=== PATIENT | male | born 1970 | race Caucasian/White ===

== ENCOUNTER 2017-08-27 18:08 | Inpatient (IN) ==
[2017-08-27] MEDS ORDERED: ASPIRIN 325 MG TABLET PO STA (19:23)
[2017-08-27] MEDS ORDERED: ONDANSETRON 4 MG/2 ML VIAL IV STA (19:23)
[2017-08-27] MEDS ORDERED: NITROGLYCERIN 2% OINT 1 INCH/GM PACK TOP STA (19:23)
[2017-08-27] MEDS ORDERED: MORPHINE 2 MG/1 ML SYRINGE IV STA (19:23)
[2017-08-27 19:29] LABS: Basophils # 0.1 10*3/uL (0.0-0.2); Basophils % 0.7 % (0.0-0.8); Eosinophils # 0.1 10*3/uL (0.0-0.87); Hematocrit 45.6 VOL% (42.0-52.0); Hemoglobin 14.9 GM/DL (14.0-18.0); Immature Granulocytes % 0.5 %; Immature Granulocytes Absolute 0.04 #; Lymphocytes # 1.6 10*3/uL (1.4-4.0); Lymphocytes % 19.8 % (21.2-54.2); Mean Corpuscular HGB Conc 32.7 GM/DL (32-36); Mean Corpuscular Hemoglobin 28 PG (27-34); Mean Corpuscular Volume 84.4 FL (87-102); Mean Platelet Volume 13.5 FL (9.6-12.0); Monocytes # 0.6 10*3/uL (0.11-0.8); Monocytes % 7.6 % (1.7-12.7); Neutrophils # 5.8 10*3/uL (1.4-7.4); Neutrophils % 70.4 % (38.7-73.9); Platelet Count 201 T/CUMM (130-400); Red Cell Distribution Width 13.9 % (9.3-17.3); White Blood Count 8.2 T/CUMM (4-12)
[2017-08-27 19:38] LABS: PT Patient Result 10.3 SECS
[2017-08-27 19:42] LABS: Albumin 3.8 G/DL (3.4-5.0); Bilirubin,Total 0.6 MG/DL (0.2-1.0); Calcium 8.5 MG/DL (8.5-10.1); Osmolality,Calculated 262.5 MOS/KG (273-304); Potassium 3.8 MMOL/L (3.5-5.1); Total Protein 7.4 G/DL (6.4-8.3)
[2017-08-27] MEDS ORDERED: NITROGLYCERIN 2% OINT 1 INCH/GM PACK TOP ONE (19:52)
[2017-08-27] MEDS ORDERED: ONDANSETRON 4 MG/2 ML VIAL ONE (19:52)
[2017-08-27] MEDS ORDERED: MORPHINE 10 MG/1 ML VIAL ONE (19:52)
[2017-08-27] MEDS ORDERED: ASPIRIN 325 MG TABLET ONE (19:53)
[2017-08-27] MEDS ORDERED: METOPROLOL TARTRATE 5 MG/5 ML VIAL IV ONE ×2 (20:52)
[2017-08-27] MEDS ORDERED: ACETAMINOPHEN 325 MG TABLET PO PRN (21:46)
[2017-08-27] MEDS ORDERED: MORPHINE 10 MG/1 ML VIAL IV PRN (21:46)
[2017-08-27] MEDS ORDERED: ONDANSETRON 4 MG/2 ML VIAL IV PRN (21:46)
[2017-08-27] MEDS: ENOXAPARIN 150 MG/ML SYRINGE SUBCUT SCH (22:37)
[2017-08-27] MEDS: SODIUM CHLORIDE 0.9% 1,000 ML IV SCH (22:40)
[2017-08-27] MEDS: DOCUSATE SODIUM 100 MG CAPSULE PO SCH (22:40)
[2017-08-27] MEDS: NITROGLYCERIN 2% OINT 1 INCH/GM PACK TOP SCH (23:44)
[2017-08-28 03:09] LABS: Basophils # 0.1 10*3/uL (0.0-0.2); Basophils % 0.6 % (0.0-0.8); Eosinophils # 0.1 10*3/uL (0.0-0.87); Eosinophils % 1.6 % (0.00-10.9); Hematocrit 42.8 VOL% (42.0-52.0); Immature Granulocytes % 0.4 %; Immature Granulocytes Absolute 0.03 #; Lymphocytes # 2.8 10*3/uL (1.4-4.0); Lymphocytes % 34.5 % (21.2-54.2); Mean Corpuscular HGB Conc 32.7 GM/DL (32-36); Mean Corpuscular Hemoglobin 28 PG (27-34); Mean Corpuscular Volume 85.1 FL (87-102); Mean Platelet Volume 12.4 FL (9.6-12.0); Monocytes # 0.6 10*3/uL (0.11-0.8); Monocytes % 7.7 % (1.7-12.7); Neutrophils # 4.5 10*3/uL (1.4-7.4); Neutrophils % 55.2 % (38.7-73.9); Platelet Count 191 T/CUMM (130-400); Red Blood Count 5.03 MC/CUMM (3.8-5.5); Red Cell Distribution Width 13.9 % (9.3-17.3); White Blood Count 8.2 T/CUMM (4-12)
[2017-08-28 03:35] LABS: Albumin 3.3 G/DL (3.4-5.0); Bilirubin,Total 0.4 MG/DL (0.2-1.0); Calcium 8.1 MG/DL (8.5-10.1); Osmolality,Calculated 279.4 MOS/KG (273-304); Potassium 3.4 MMOL/L (3.5-5.1); Risk Ratio 7.03; Total Protein 6.4 G/DL (6.4-8.3); VLDL CHOLESTEROL 52.6 MG/DL
[2017-08-28] MEDS: NITROGLYCERIN 2% OINT 1 INCH/GM PACK TOP SCH ×3 (06:38→17:31)
[2017-08-28] MEDS ORDERED: IRBESARTAN 150 MG TABLET PO SCH (09:00)
[2017-08-28] MEDS ORDERED: ASPIRIN EC 81 MG TABLET PO SCH (09:00)
[2017-08-28] MEDS ORDERED: PANTOPRAZOLE 40 MG TABLET PO SCH (09:00)
[2017-08-28] MEDS: DOCUSATE SODIUM 100 MG CAPSULE PO SCH (09:21)
[2017-08-28] MEDS ORDERED: POTASSIUM CHLORIDE RIDER 10 MEQ in PREMIX 1 EACH IV PRN (10:18)
[2017-08-28] MEDS ORDERED: MAGNESIUM SULF RIDER 2 GM in PREMIX 1 EACH IV PRN (10:18)
[2017-08-28] MEDS ORDERED: diphenhydrAMINE CAP 25 MG CAPSULE PO ONE (10:30)
[2017-08-28] MEDS ORDERED: DIAZEPAM 5 MG TABLET PO ONE (10:30)
[2017-08-28 10:54] LABS: Apearance,Urine CLOUDY (Clear); Bacteria,Urine Many /HPF (Few); Bilirubin,Urine Negative (Negative); Blood, Urine Small mg/dL (Negative); Glucose,Urine (UA) Negative (Negative); Ketones,Urine Negative (Negative); Mucus,Urine Occasional /LPF (Occasional); Nitrite,Urine Negative (Negative); Protein,Urine 30 MG/DL; RBC,Urine 19 /HPF (0-4); Urine Color Yellow (Yellow); Urine Specific Gravity 1.013 (1.001-1.035); Urine Urobilinogen < 2.0 EU/DL (0.2-1.0); WBC,Urine 123 /HPF (0-6)
[2017-08-28 10:56] LABS: Barbiturates Screen,Urine Negative (Negative); Benzodiazepines Screen,Urine Negative (Negative); Cannabinoid Screen,Urine Negative (Negative); Opiate Screen,Urine Positive (Negative); Phencyclidine Screen,Urine Negative (Negative)
[2017-08-28] MEDS: ENOXAPARIN 150 MG/ML SYRINGE SUBCUT SCH (11:19)
[2017-08-28] MEDS: SODIUM CHLORIDE 0.9% 1,000 ML IV SCH (11:20)
[2017-08-28] MEDS ORDERED: LIDOCAINE 1% 20 ML VIAL ONE (12:16)
[2017-08-28] MEDS ORDERED: MIDAZOLAM 2 MG/2 ML VIAL ONE (12:16)
[2017-08-28] MEDS ORDERED: HYDROmorphone 2 MG/1 ML VIAL ONE (12:16)
[2017-08-28] MEDS ORDERED: NITROGLYCERIN DRIP 50 MG/250 ML BOTTLE IV ONE (12:26)
[2017-08-28] MEDS ORDERED: VERAPAMIL 5 MG/2 ML VIAL ONE (12:26)
[2017-08-28 18:36] VITALS: BP 146/90
[2017-08-28] MEDS ORDERED: ROSUVASTATIN 20 MG TABLET PO SCH (21:00)
== END 2017-08-28 19:25 | disposition home or self-care (01) | DRG 287 ==
LOC: N.ED 18:08 → N.EDINP 20:14 → N.TELES 20:47
PROVIDERS: ADMIT Family Medicine; ATTEND Family Medicine
PROC: CLCCHCL (ICD-10-PCS; 2017-08-28 11:45)

== ENCOUNTER 2022-01-15 07:08 | Inpatient (IN) ==
[2022-01-15] MEDS ORDERED: ASPIRIN 325 MG TABLET PO STA (07:26)
[2022-01-15] MEDS ORDERED: ONDANSETRON 4 MG/2 ML VIAL IV STA (07:51)
[2022-01-15] MEDS ORDERED: MORPHINE 2 MG/1 ML SYRINGE IV STA ×3 (07:51→09:28)
[2022-01-15] MEDS ORDERED: METOPROLOL TARTRATE 5 MG/5 ML VIAL IV STA ×3 (07:51→09:28)
[2022-01-15 07:52] LABS: Basophils # 0.1 10*3/uL (0.0-0.2); Basophils % 0.9 % (0.0-0.8); Eosinophils # 0.2 10*3/uL (0.0-0.87); Eosinophils % 1.9 % (0.00-10.9); Hematocrit 46.5 VOL% (42.0-52.0); Hemoglobin 15.5 GM/DL (14.0-18.0); Immature Granulocytes % 0.6 %; Immature Granulocytes Absolute 0.05 #; Lymphocytes # 1.7 10*3/uL (1.4-4.0); Lymphocytes % 21.1 % (21.2-54.2); Mean Corpuscular HGB Conc 33.3 GM/DL (32-36); Mean Corpuscular Volume 94.5 FL (87-102); Mean Platelet Volume 11.7 FL (9.6-12.0); Monocytes # 0.7 10*3/uL (0.11-0.8); Monocytes % 8.9 % (1.7-12.7); Neutrophils % 66.6 % (38.7-73.9); Platelet Count 164 T/CUMM (130-400); Red Blood Count 4.92 MC/CUMM (3.8-5.5); Red Cell Distribution Width 13.4 % (9.3-17.3)
[2022-01-15] MEDS ORDERED: NITROGLYCERIN 2% OINT 1 INCH/GM PACK TOP STA (08:09)
[2022-01-15 08:13] LABS: Albumin 3.1 G/DL (3.4-5.0); Bilirubin,Total 0.4 MG/DL (0.20-1.00); Calcium 8.5 MG/DL (8.5-10.1); INR 0.9; Osmolality,Calculated 276.8 MOS/KG (273-304); PT Patient Result 9.8 SECS (10.5-12.0); Partial Thromboplastin Time 26.2 SECS (23.8-32.1); Potassium 4.3 MMOL/L (3.5-5.1); Total Protein 6.7 G/DL (6.4-8.2)
[2022-01-15] MEDS ORDERED: ALUM/MAG/SIMETH/LIDO VISC 1:1 30 ML BOTTLE PO STA (08:19)
[2022-01-15] MEDS ORDERED: LORazepam 2 MG/1 ML VIAL IV STA (08:19)
[2022-01-15] MEDS ORDERED: niCARdipine 25 MG/10 ML VIAL IV ONE ×3 (08:34→14:40)
[2022-01-15] MEDS: niCARdipine INJ 25 MG in SODIUM CHLORIDE 0.9% 240 ML IV PRN ×5 (08:40→20:55)
[2022-01-15 08:41] LABS: Bacteria,Urine Moderate /HPF (Few); Bilirubin,Urine Negative (Negative); Blood, Urine Negative (Negative); Glucose,Urine (UA) 100 mg/dL (Negative); Ketones,Urine Negative (Negative); Mucus,Urine Occasional /LPF (Occasional); Nitrite,Urine Positive (Negative); Protein,Urine Trace mg/dL (Negative); RBC,Urine 1 /HPF (0-4); Squamous Epithelial Cell,Urine Occasional /HPF (0-10); Urine Appearance Clear (Clear); Urine Color Yellow (Yellow); Urine Urobilinogen 0.2 eU/dL (<2.0); Urine pH 5.5 (4.5-8.0)
[2022-01-15] MEDS ORDERED: LEVOFLOXACIN INJ 500 MG/100 ML PREMIX IV STA (08:48)
[2022-01-15 08:49] LABS: Barbiturates Screen,Urine Negative (Negative); Benzodiazepines Screen,Urine Negative (Negative); Cannabinoid Screen,Urine Negative (Negative); Opiate Screen,Urine Negative (Negative); Phencyclidine Screen,Urine Negative (Negative)
[2022-01-15] MEDS ORDERED: ESMOLOL 2,500 MG/250 ML PREMIX IV SCH (09:30)
[2022-01-15] MEDS ORDERED: MORPHINE 10 MG/1 ML VIAL ONE (09:38)
[2022-01-15] MEDS ORDERED: ESMOLOL IV ONE ×2 (10:00)
[2022-01-15] MEDS ORDERED: SODIUM CHLORIDE 0.9% IV ONE (10:00)
[2022-01-15] MEDS ORDERED: LABETALOL INJ 200 MG in SODIUM CHLORIDE 0.9% 160 ML IV SCH (13:00)
[2022-01-15] MEDS ORDERED: ALBUTEROL 2.5 MG/3 ML NEB RESP TX PRN (14:18)
[2022-01-15] MEDS ORDERED: ALUMINUM/MAGNES/SIMETH MAX STR 30 ML UDCUP PO PRN (14:18)
[2022-01-15] MEDS: LACTATED RINGERS 1,000 ML IV SCH (15:00)
[2022-01-15] MEDS ORDERED: amLODIPine 5 MG TABLET PO SCH (15:00)
[2022-01-15] MEDS: METOPROLOL SUCCINATE XL 100 MG TABLET PO SCH (15:15)
[2022-01-15] MEDS: PANTOPRAZOLE 40 MG TABLET PO SCH (15:15)
[2022-01-15] MEDS: MORPHINE 2 MG/1 ML SYRINGE IV PRN ×2 (15:15→22:11)
[2022-01-15] MEDS: oxyCODONE/ACETAMINOPHEN 5-325 MG TABLET PO PRN (15:15)
[2022-01-15] MEDS: ISOSORBIDE DINITRATE 20 MG TABLET PO SCH ×2 (15:15→20:23)
[2022-01-15] MEDS: ENOXAPARIN 40 MG/0.4 ML SYRINGE SUBCUT SCH (15:15)
[2022-01-15] MEDS ORDERED: ONDANSETRON 4 MG/2 ML VIAL ONE (17:38)
[2022-01-15] MEDS: ONDANSETRON 4 MG/2 ML VIAL IV PRN ×2 (17:40→22:23)
[2022-01-15] MEDS: ALPRAZolam 0.5 MG TABLET PO SCH ×2 (17:49→23:00)
[2022-01-15] MEDS: niCARdipine INJ 50 MG in SODIUM CHLORIDE 0.9% 480 ML IV PRN (23:43)
[2022-01-16] MEDS ORDERED: LACTULOSE 20 GM/30 ML UDCUP PO ONE (04:05)
[2022-01-16] MEDS: niCARdipine INJ 50 MG in SODIUM CHLORIDE 0.9% 480 ML IV PRN ×4 (04:33→20:15)
[2022-01-16 06:04] LABS: Basophils % 0.2 % (0.0-0.8); Eosinophils # 0.1 10*3/uL (0.0-0.87); Eosinophils % 0.7 % (0.00-10.9); Hematocrit 45.7 VOL% (42.0-52.0); Hemoglobin 14.9 GM/DL (14.0-18.0); Immature Granulocytes % 0.4 %; Immature Granulocytes Absolute 0.05 #; Lymphocytes % 8.1 % (21.2-54.2); Mean Corpuscular HGB Conc 32.6 GM/DL (32-36); Mean Corpuscular Volume 96.6 FL (87-102); Mean Platelet Volume 11.9 FL (9.6-12.0); Monocytes # 0.8 10*3/uL (0.11-0.8); Monocytes % 6.3 % (1.7-12.7); Neutrophils % 84.3 % (38.7-73.9); Platelet Count 150 T/CUMM (130-400); Red Blood Count 4.73 MC/CUMM (3.8-5.5); Red Cell Distribution Width 13.4 % (9.3-17.3); White Blood Count 12.7 T/CUMM (4-12)
[2022-01-16 06:17] LABS: Calcium 8.3 MG/DL (8.5-10.1); Osmolality,Calculated 269.2 MOS/KG (273-304); Potassium 3.6 MMOL/L (3.5-5.1)
[2022-01-16 06:19] LABS: High Sensitive Troponin I* 16138.4 ng/L (0-78)
[2022-01-16] MEDS: ALPRAZolam 0.5 MG TABLET PO SCH ×3 (06:44→17:30)
[2022-01-16] MEDS ORDERED: DIAZEPAM 5 MG TABLET PO ONE (07:48)
[2022-01-16] MEDS ORDERED: diphenhydrAMINE CAP 50 MG CAPSULE PO ONE (07:48)
[2022-01-16] MEDS ORDERED: MAGNESIUM CITRATE 300 ML BOTTLE PO ONE (08:21)
[2022-01-16] MEDS ORDERED: METOPROLOL SUCCINATE XL 100 MG TABLET PO SCH (09:00)
[2022-01-16] MEDS ORDERED: SODIUM CHLORIDE 0.9% 1,000 ML IV SCH (09:00)
[2022-01-16 09:12] LABS: Risk Ratio 5.9; VLDL Cholesterol 72.6 MG/DL
[2022-01-16] MEDS: LOSARTAN 25 MG TABLET PO SCH ×2 (09:30→20:49)
[2022-01-16] MEDS: oxyCODONE/ACETAMINOPHEN 5-325 MG TABLET PO PRN (09:30)
[2022-01-16] MEDS: ASPIRIN EC 81 MG TABLET PO SCH (09:30)
[2022-01-16] MEDS: MORPHINE 2 MG/1 ML SYRINGE IV PRN (09:30)
[2022-01-16] MEDS: METOPROLOL SUCCINATE XL 100 MG TABLET PO SCH (09:30)
[2022-01-16] MEDS: PANTOPRAZOLE 40 MG TABLET PO SCH (09:30)
[2022-01-16] MEDS: ISOSORBIDE DINITRATE 20 MG TABLET PO SCH ×3 (09:30→20:15)
[2022-01-16] MEDS: LACTATED RINGERS 1,000 ML IV SCH (10:48)
[2022-01-16] MEDS ORDERED: HYDROmorphone 1 MG/1 ML SYRINGE ONE (13:17)
[2022-01-16] MEDS ORDERED: MIDAZOLAM 2 MG/2 ML VIAL ONE (13:18)
[2022-01-16] MEDS ORDERED: HEPARIN/NACL 0.9% 2 UNITS/ML 1,000 UNIT/500 ML BAG IV ONE (13:21)
[2022-01-16] MEDS ORDERED: NITROGLYCERIN DRIP 50 MG/250 ML BOTTLE IV ONE ×2 (13:22→13:23)
[2022-01-16] MEDS ORDERED: VERAPAMIL 5 MG/2 ML VIAL ONE (13:23)
[2022-01-16] MEDS ORDERED: ENOXAPARIN 30 MG/0.3 ML SYRINGE ONE (13:36)
[2022-01-16] MEDS ORDERED: TICAGRELOR 90 MG TABLET ONE (14:22)
[2022-01-16] MEDS: ENOXAPARIN 40 MG/0.4 ML SYRINGE SUBCUT SCH (15:53)
[2022-01-16] MEDS: TICAGRELOR 90 MG TABLET PO SCH (20:15)
[2022-01-16] MEDS ORDERED: MORPHINE 2 MG/1 ML SYRINGE IV PRN (21:16)
[2022-01-16] MEDS: ALPRAZolam 0.5 MG TABLET PO PRN (23:17)
[2022-01-17] MEDS: niCARdipine INJ 50 MG in SODIUM CHLORIDE 0.9% 480 ML IV PRN ×2 (01:13→04:27)
[2022-01-17 05:31] LABS: Basophils % 0.4 % (0.0-0.8); Eosinophils # 0.1 10*3/uL (0.0-0.87); Eosinophils % 0.9 % (0.00-10.9); Hematocrit 43.9 VOL% (42.0-52.0); Hemoglobin 14.1 GM/DL (14.0-18.0); Immature Granulocytes % 0.5 %; Immature Granulocytes Absolute 0.06 #; Lymphocytes # 1.2 10*3/uL (1.4-4.0); Lymphocytes % 10.5 % (21.2-54.2); Mean Corpuscular HGB Conc 32.1 GM/DL (32-36); Mean Corpuscular Volume 96.9 FL (87-102); Mean Platelet Volume 11.5 FL (9.6-12.0); Monocytes # 0.8 10*3/uL (0.11-0.8); Monocytes % 6.9 % (1.7-12.7); Neutrophils % 80.8 % (38.7-73.9); Platelet Count 140 T/CUMM (130-400); Red Blood Count 4.53 MC/CUMM (3.8-5.5); Red Cell Distribution Width 13.4 % (9.3-17.3); White Blood Count 11.2 T/CUMM (4-12)
[2022-01-17 05:58] LABS: High Sensitive Troponin I* 7582.4 ng/L (0-78); Osmolality,Calculated 272.8 MOS/KG (273-304)
[2022-01-17 05:59] LABS: Calcium 8.1 MG/DL (8.5-10.1)
[2022-01-17] MEDS ORDERED: hydrALAZINE 20 MG/1 ML VIAL IV PRN (07:43)
[2022-01-17] MEDS: PANTOPRAZOLE 40 MG TABLET PO SCH (08:10)
[2022-01-17] MEDS: ISOSORBIDE DINITRATE 20 MG TABLET PO SCH ×3 (08:10→21:08)
[2022-01-17] MEDS: LOSARTAN 50 MG TABLET PO SCH ×2 (08:10→21:07)
[2022-01-17] MEDS: TICAGRELOR 90 MG TABLET PO SCH ×2 (08:10→21:08)
[2022-01-17] MEDS: ASPIRIN EC 81 MG TABLET PO SCH (08:11)
[2022-01-17] MEDS: METOPROLOL SUCCINATE XL 100 MG TABLET PO SCH (08:12)
[2022-01-17] MEDS: ROSUVASTATIN 20 MG TABLET PO SCH (08:18)
[2022-01-17] MEDS: LACTATED RINGERS 1,000 ML IV SCH (08:24)
[2022-01-17] MEDS: ALPRAZolam 0.5 MG TABLET PO PRN ×2 (08:26→21:07)
[2022-01-17] MEDS ORDERED: SIMETHICONE CHEW 80 MG TABLET PO PRN (09:19)
[2022-01-17] MEDS: DOCUSATE/SENNA 50-8.6 MG TABLET PO SCH ×2 (09:26→21:10)
[2022-01-17 12:13] VITALS: BP 149/75
[2022-01-17] MEDS: ENOXAPARIN 40 MG/0.4 ML SYRINGE SUBCUT SCH (15:21)
[2022-01-17] MEDS: ACETAMINOPHEN 325 MG TABLET PO PRN (21:08)
[2022-01-17] MEDS: AMPICILLIN INJ 500 MG in SODIUM CHLORIDE 0.9% 100 ML IV SCH (21:09)
[2022-01-18] MEDS: AMPICILLIN INJ 500 MG in SODIUM CHLORIDE 0.9% 100 ML IV SCH ×3 (01:46→06:31)
[2022-01-18 06:05] LABS: Basophils % 0.3 % (0.0-0.8); Eosinophils # 0.1 10*3/uL (0.0-0.87); Eosinophils % 0.8 % (0.00-10.9); Hematocrit 43.9 VOL% (42.0-52.0); Hemoglobin 14.4 GM/DL (14.0-18.0); Immature Granulocytes % 0.4 %; Immature Granulocytes Absolute 0.05 #; Lymphocytes # 1.2 10*3/uL (1.4-4.0); Lymphocytes % 10.3 % (21.2-54.2); Mean Corpuscular HGB Conc 32.8 GM/DL (32-36); Mean Corpuscular Volume 96.5 FL (87-102); Mean Platelet Volume 11.6 FL (9.6-12.0); Monocytes # 0.9 10*3/uL (0.11-0.8); Monocytes % 7.4 % (1.7-12.7); Neutrophils % 80.8 % (38.7-73.9); Platelet Count 147 T/CUMM (130-400); Red Blood Count 4.55 MC/CUMM (3.8-5.5); Red Cell Distribution Width 13.5 % (9.3-17.3); White Blood Count 11.6 T/CUMM (4-12)
[2022-01-18] MEDS: ACETAMINOPHEN 325 MG TABLET PO PRN (06:15)
[2022-01-18] MEDS: ALPRAZolam 0.5 MG TABLET PO PRN (06:15)
[2022-01-18 06:27] LABS: Calcium 8.8 MG/DL (8.5-10.1); Potassium 3.4 MMOL/L (3.5-5.1)
[2022-01-18 06:30] LABS: High Sensitive Troponin I* 4532.9 ng/L (0-78)
[2022-01-18] MEDS ORDERED: POTASSIUM CHLORIDE 20 MEQ TABLET PO ONE (08:59)
[2022-01-18] MEDS ORDERED: ISOSORBIDE MONONITRATE 60 MG TABLET PO SCH (09:00)
[2022-01-18] MEDS ORDERED: VALSARTAN 160 MG TABLET PO SCH (09:00)
[2022-01-18] MEDS ORDERED: hydroCHLOROthiazide 12.5 MG CAPSULE PO SCH (09:00)
[2022-01-18] MEDS: DOCUSATE/SENNA 50-8.6 MG TABLET PO SCH (09:34)
[2022-01-18] MEDS: ROSUVASTATIN 20 MG TABLET PO SCH (09:52)
[2022-01-18] MEDS: ASPIRIN EC 81 MG TABLET PO SCH (09:52)
[2022-01-18] MEDS: TICAGRELOR 90 MG TABLET PO SCH (09:52)
[2022-01-18] MEDS: PANTOPRAZOLE 40 MG TABLET PO SCH (09:52)
[2022-01-18] MEDS: METOPROLOL SUCCINATE XL 100 MG TABLET PO SCH (09:53)
[2022-01-18] MEDS ORDERED: LEVOFLOXACIN 750 MG TABLET PO SCH (18:00)
[2022-01-19] MEDS ORDERED: VALSARTAN 80 MG TABLET PO SCH (09:00)
[2022-01-19] MEDS ORDERED: ISOSORBIDE MONONITRATE 30 MG TABLET PO SCH (09:00)
== END 2022-01-18 12:34 | disposition home or self-care (01) | DRG 247 ==
LOC: N.ED 07:08 → N.EDINP 14:01 → N.ICU 14:30
PROVIDERS: ADMIT Internal Medicine; ATTEND Internal Medicine